=== PATIENT | female | born 1950 | race Caucasian/White ===

== ENCOUNTER 2024-03-16 12:45 | Emergency (ER) | payer OTHER, SELFPAY ==
[2024-03-16 13:31] VITALS: BP 107/59; PULSE 63; RESP 16; TEMP 36.3; O2SAT 97; BMI 34.3
[2024-03-16 13:48] VITALS: BP 102/60; BP 110/54; BP 95/58; PULSE 61; PULSE 65; PULSE 71
--- NOTE | 2024-03-16 14:05 | ED_ITS ---
HPI - General Adult General Date Seen: 03/16/24 Chief complaint: Diarrhea Stated complaint: diarrhea/dehydration Time Seen by Provider: 03/16/24 13:38 History of Present Illness HPI narrative: 73-year-old female who presents to the ER this afternoon with her son with concern for diarrhea, weakness, and concern for diarrhea. She has had problem with diarrhea off and on for the past couple of years. She is actually visiting [place] to see her family for the holiday but normally lives in [place]. She has had a long history of diarrhea and in particular problematic diarrhea for the past couple of months. She has already had workup with a GI doctor in [facility] that included labs, testing for C diff, endoscopy, colonoscopy, with no clear explanation. It sounds like she does not have any infectious cause or inflammatory bowel cause of her diarrhea. Her GI doctor has suggested that it might be a med side effect and apparently they are going to start having her stop 1 of her medications at a time until the diarrhea gets better. She has also been trying to use Imodium, but not having much improvement. She has had some more diarrhea for the past couple of days, while being here in [place]. Despite using Imodium. She starting to feel weak and dehydrated. She has a little bit lightheaded with standing. She is not having any bloody stool mucousy stool. No fever. No abdominal pain. She recalls similar symptoms with significant dehydration leading to an acute kidney injury in September. She was hospitalized for about 48 hours to get IV fluids and correct in acute kidney injury. According to the patient and her son she had creatinine had gone from a baseline around 1 or 1.5 up to around 4 or 5. It then rebounded back to normal. She had a follow-up with the kidney doctor a month or 2 ago and was told that her kidneys were good. She does not recall her exact baseline creatinine level but she thinks it is around 1.4 or 1.5.. Related Data Home Medications ?Medication ?Instructions ?Recorded ?Confirmed atorvastatin .ROUTE 03/16/24 carvedilol .ROUTE 03/16/24 gabapentin .ROUTE 03/16/24 losartan .ROUTE 03/16/24 pediatric multivitamin no.17 PO 03/16/24 Previous Rx's ?Medication ?Instructions ?Recorded diphenoxylate-atropine 2.5 1 tab PO DAILY PRN diarrhea #10 12/25/24 mg-0.025 mg tablet (Lomotil) tabs diphenoxylate-atropine 2.5 1 tab PO Q12H PRN diarrhea #10 tabs 12/25/24 mg-0.025 mg tablet (Lomotil) Allergies Allergy/AdvReac Type Severity Reaction Status Date / Time losartan Allergy Mild Hives Verified 03/16/24 13:36 Exam Narrative: Exam Narrative: Constitutional: Appears well-developed and well-nourished. Alert. Conversant. Non toxic. HENT: Head: Atraumatic. Nose: Nose normal. Mouth/Throat: Oral mucosa is clear but dry. Not desiccated or cracked.. no t rismus. Pharynx normal. Eyes: Conjunctivae normal. EOM normal. Pupils equal, round, and reactive to light. No scleral icterus. Neck: Normal range of motion. Neck supple. No tracheal deviation present. Cardiovascular: Normal rate, regular rhythm. No gallop. No friction rub. No murmur heard. Symmetric radial artery pulses Pulmonary/Chest: Effort normal. No stridor. No respiratory distress. No wheezes. No rales. No rhonchi . No tenderness. Abdominal: Soft. Bowel sounds normal. No distension. No mass. No tenderness. No rebound. No guarding. Musculoskeletal: RUE: Normal range of motion. No tenderness. No deformity LUE: Normal range of motion. No tenderness. No deformity RLE: Normal range of motion. No edema. No tenderness. No deformity LLE: Normal range of motion. No edema. No tenderness. No deformity Neurological: Alert and oriented to person, place, and time. Normal strength. CN II-VII intact. No sensory deficit. GCS eye subscore is 4. GCS verbal subscore is 5. GCS motor subscore is 6. Normal coordination Skin: Skin is warm and dry. No rash noted. No pallor. Normal capillary refill. Psychiatric: Normal mood. Normal affect. Const: Vital Signs, click to edit/add: Vital Signs - 24 hr 03/16/24 13:31 03/16/24 13:48 Temperature 97.3 F L Pulse Rate [Pulse Oximeter] 63 61 Pulse Rate [orthos tatic lying Pulse Oximeter] 71 Pulse Rate [orthos tatic sitting Puls e Oximeter] 65 Respiratory Rate 16 Blood Pressure [Ri ght Forearm] 107/59 L Blood Pressure [or thostatic lying Ri ght Arm] 110/54 L Blood Pressure [or thostatic sitting Right Arm] 102/60 Blood Pressure [or thostatic standing Right Arm] 95/58 L Pulse Oximetry 97 Oxygen Delivery Me thod Room Air Course Vital Signs Vital signs: Initial Vital Signs Temperature 97.3 F L 03/16/24 13:31 Temperature Source Temporal Artery Scan 03/16/24 13:31 Pulse Rate 63 03/16/24 13:31 Respiratory Rate 16 03/16/24 13:31 Blood Pressure 107/59 L 03/16/24 13:31 Blood Pressure Mean 75 03/16/24 13:31 Blood Pressure Position Sitting 03/16/24 13:31 Pulse Oximetry 97 03/16/24 13:31 Oxygen Delivery Method Room Air 03/16/24 13:31 Vital Signs Temperature 97.3 F L 03/16/24 13:31 Pulse Rate 63 03/16/24 13:31 Respiratory Rate 16 03/16/24 13:31 Blood Pressure 107/59 L 03/16/24 13:31 Pulse Oximetry 97 03/16/24 13:31 Oxygen Delivery Method Room Air 03/16/24 13:31 Temperature 97.3 F L 03/16/24 13:31 Pulse Rate 61 03/16/24 13:48 Respiratory Rate 16 03/16/24 13:31 Blood Pressure 110/54 L 03/16/24 13:48 Pulse Oximetry 97 03/16/24 13:31 Oxygen Delivery Method Room Air 03/16/24 13:31 Medications Administered Medications: Discontinued Medications Generic Name Dose Route Start Last Admin Trade Name Mikq PRN Reason Stop Dose Admin Diphenoxylate HCl/Atropine 1 tab 03/16/24 16:23 03/16/24 16:51 Diphenoxylate-Atrop 2.5-0.025 Tablet PO 03/16/24 16:24 1 tab ONCE ONE Administration Sodium Chloride 1,000 mls @ 1,000 mls/hr 03/16/24 14:30 03/16/24 16:06 0.9 % Sodium Chloride 1000 Ml IV 03/16/24 15:29 Infused .Q1H SURY Infusion Medical Decision Making MDM Narrative Medical decision making narrative: This is a pleasant 73-year-old female who has a problem with longstanding diarrhea. She has already had what sounds like an ice does have workup through Gastroenterology. In her hometown, in [place]. She is traveling here to [place] for the hol. She presents to the ER today with concern that her chronic diarrhea is a bit worse than normal and now she is feeling dehy drated. She has a history of dehydration leading to significant acute kidney injury requiring hospitalization in September, and wants to avoid that. She and her son prime fairly present here desiring IV fluids to help her feel better. She is feeling symptomatically orthostatic but is not orthostatically hypotensive on measurement here in the ER. Blood pressure is in the low normal range but is normal. Pulse rate is normal. Laboratory workup shows reassuring hemoglobin, normal white count. Mildly low potassium at 3.3. She does have elevated BUN at 38 and creatinine 1.7. This is up slightly from her reported baseline around 1.41.5. At this point not a significant enough change in kidney function to require hospitalization. She is symptomatic weak feeling much better after IV fluids and she and her son are comfortable with plan for discharge home. She has been trying to manage the diarrhea with Imodium but is not helping. We agreed to try short trial run of Lomotil. She will try this empirically and if it helps she will continue for the short term. If not she will discontinue. She will follow-up with her doctors in [place] when she gets home. Provided with printed copies of her lab work for follow-up and trending. Precautions for return to the ER reviewed. Questions answered. e Lab Data Labs: Lab Results 03/16/24 Range/Units 14:50 WBC 7.64 (4.50-11.00) K/uL RBC 3.96 L (4.00-5.20) m/uL Hgb 12.2 (12.0-16.0) gm/dL Hct 37.6 (33.0-51.0) % MCV 95 (80-100) fL MCH 31 (26-34) pg MCHC 32 (32-36) gm/dL RDW Coeff of Korina 13.1 (11.5-15.5) % Plt Count 245 (140-440) K/uL Neut % (Auto) 62.0 (42.0-72.0) % Lymph % (Auto) 21.9 (20-44) % [place] % (Auto) 11.1 H (0.0-11.0) % Eos % (Auto) 3.9 (0.0-7.0) % Baso % (Auto) 0.4 (0.0-3.0) % Neut # (Auto) 4.74 (1.7-7.0) K/uL Lymph # (Auto) 1.67 (0.90-2.90) K/uL [place] # (Auto) 0.80 (0.00-0.90) K/UL Eos # (Auto) 0.30 (0.00-0.50) K/uL Baso # (Auto) 0.03 (0.00-0.30) K/uL Abs Immat Gran (auto) 0.05 (0.00-0.30) K/uL Imm/Tot Granulo (auto) 0.7 % Sodium 135 (135-149) mmol/L Potassium 3.3 L (3.6-5.1) mmol/L Chloride 101 (96-114) mmol/L Carbon Dioxide 27 (20-32) mmol/L Anion Gap 7 (7-15) mEq/L BUN 38 H (7-30) mg/dL Creatinine 1.7 H (0.5-1.5) mg/dL Estimated Creat Clear 26.21 Estimated GFR 32 ml/min Glucose 135 H (60-115) mg/dL Lactate 1.3 (0.5-1.9) mmol/L Calcium 9.0 (8.4-10.6) mg/dL Total Bilirubin 0.4 (0.1-1.5) mg/dL AST 24 (12-35) U/L ALT 16 (4-35) U/L Alkaline Phosphatase 122 (40-150) U/L Total Protein 6.9 (6.0-8.3) g/dL Albumin 4.1 (3.3-5.0) g/dL Discharge Plan Discharge Clinical Impression: Diarrhea, Dehydration Patient Disposition: Home, Self-Care Condition: Stable Instructions: Dehydration (ED) Additional Instructions: As we discussed, please come back to the ER right away if you have uncontrolled diarrhea, dehydration weakness, or any other concerns. Please follow-up with her doctors in [place] in 1-2 weeks to recheck your kidney function. Prescriptions: New diphenoxylate-atropine [Lomotil] 2.5-0.025 mg tablet 1 tab PO DAILY PRN (Reason: diarrhea) Qty: 10 0RF diphenoxylate-atropine [Lomotil] 2.5-0.025 mg tablet 1 tab PO Q12H PRN (Reason: diarrhea) Qty: 10 0RF No Action atorvastatin .ROUTE losartan .ROUTE carvedilol .ROUTE gabapentin .ROUTE pediatric multivitamin no.17 [Children's Chew Multivitamin] PO Follow Up/Referrals: Provider,Not a Local [Primary Care Provider] - Stand Alone Forms: MyHealth Info Instructions
[2024-03-16 14:59] LABS: Lactate* 1.3 mmol/L (0.5-1.9)
[2024-03-16 15:00] LABS: Basophils Absolute Auto 0.03 K/uL (0.00-0.30); Basophils Percent Auto 0.4 % (0.0-3.0); Eosinophils Percent Auto 3.9 % (0.0-7.0); Hematocrit 37.6 % (33.0-51.0); Hemoglobin* 12.2 gm/dL (12.0-16.0); Immature Granulocytes Abs Auto 0.05 K/uL (0.00-0.30); Immature Granulocytes Pct Auto 0.7 %; Lymphocytes Absolute Auto 1.67 K/uL (0.90-2.90); Lymphocytes Percent Auto 21.9 % (20-44); Mean Corpuscular HGB Conc 32 gm/dL (32-36); Mean Corpuscular Hemoglobin 31 pg (26-34); Mean Corpuscular Volume 95 fL (80-100); Monocytes Percent Auto 11.1 % (0.0-11.0); Neutrophils Absolute Auto 4.74 K/uL (1.7-7.0); Platelet Count* 245 K/uL (140-440); RDW Coefficient of Variation % 13.1 % (11.5-15.5); Red Blood Count 3.96 m/uL (4.00-5.20); White Blood Count* 7.64 K/uL (4.50-11.00)
[2024-03-16] MEDS: 0.9 % SODIUM CHLORIDE 1000 ml 1,000 ML IV (15:00)
[2024-03-16 15:05] LABS: Slide Review Reflex No
[2024-03-16 15:14] LABS: Albumin* 4.1 g/dL (3.3-5.0); Chloride* 101 mmol/L (96-114); Potassium* 3.3 mmol/L (3.6-5.1); Sodium* 135 mmol/L (135-149)
[2024-03-16 15:17] LABS: Alanine Aminotransferase* 16 U/L (4-35); Alkaline Phosphatase* 122 U/L (40-150); Anion Gap 7 mEq/L (7-15); Aspartate Amino Transferase* 24 U/L (12-35); Bilirubin Total* 0.4 mg/dL (0.1-1.5); Blood Urea Nitrogen* 38 mg/dL (7-30); Carbon Dioxide* 27 mmol/L (20-32); Creatinine* 1.7 mg/dL (0.5-1.5); Est. Creatinine Clearance* 26.21; Estimated Glomerular Filt Rate 32 ml/min; Glucose* 135 mg/dL (60-115); Total Protein* 6.9 g/dL (6.0-8.3)
[2024-03-16] MEDS: DIPHENOXYLATE-ATROP 2.5-0.025 TABLET 1 TAB PO (16:51)
== END 2024-03-16 16:59 | disposition home or self-care (01) ==
PROVIDERS: Emergency Provider Emergency Medicine
DX: R19.7 Diarrhea, unspecified (principal); E86.0 Dehydration
CPT/HCPCS: 36415; 80053; 83605; 85025; 99283; A9270; J7030